=== PATIENT | male | born 1940 | race Caucasian/White ===

== ENCOUNTER 2024-08-29 08:19 | Observation (INO) ==
[~2024-08-29 08:19] MED LIST: Morphine 4 MG/ML VIAL (1 ml) IV PRN; Naloxone 0.4 mg VIAL 0.4 mg/ml 1 ml VIAL IV PRN; fentaNYL 100 mcg/2 ml 50 MCG/ML VIAL IV PRN
[2024-08-29] MEDS ORDERED: Tranexamic Acid 1 GM/100ML BAG 2,000 MG/200 ML BAG IV ONE (08:40)
[2024-08-29] MEDS ORDERED: ceFAZolin 2 GM PREMIX 2 GM/50 ML BAG ONE (08:40)
[2024-08-29] MEDS ORDERED: Dexamethasone IV 4 MG/ML VIAL 1 ml VIAL ONE (08:47)
[2024-08-29] MEDS ORDERED: Famotidine IV 10 MG/ML 2 ml VIAL (20 mg) ONE (08:47)
[2024-08-29] MEDS: Dexamethasone IV 4 MG/ML VIAL 1 ml VIAL IV SLOW PU ONE (09:02)
[2024-08-29] MEDS: Famotidine IV 10 MG/ML 2 ml VIAL (20 mg) IV ONE (09:02)
[2024-08-29 09:06] LABS: Rapid COVID-19 Molecular Undetected (Undetected)
[2024-08-29] MEDS ORDERED: Propofol 10 MG/ML 20 ML BTL ONE (09:28)
[2024-08-29] MEDS ORDERED: Lidocaine 2% PF 5 ML VIAL ONE (09:28)
[2024-08-29] MEDS ORDERED: Rocuronium 50 mg VIAL 10 mg/ml 5 ml VIAL (50 mg) ONE (09:28)
[2024-08-29] MEDS ORDERED: Lidocaine 1% w EPI 1:200,000 SDV 30 ML VIAL ONE (09:58)
[2024-08-29] MEDS ORDERED: Midazolam 2 mg/2 ml VIAL 1 mg/ml 2 ml VIAL (2 mg) ONE (10:12)
[2024-08-29] MEDS ORDERED: fentaNYL 100 mcg/2 ml 50 MCG/ML VIAL ONE (10:12)
[2024-08-29] MEDS ORDERED: ROPIVACAINE 5 MG/ML 30 ML BTL (0.5%) ONE (10:36)
[2024-08-29] MEDS ORDERED: Ondansetron 4 mg VIAL 2 MG/ML 2 ml VIAL ONE (11:32)
[2024-08-29] MEDS ORDERED: Glycopyrrolate IV 0.2 MG/ML 1 ML VIAL ONE ×2 (11:54→13:15)
[2024-08-29] MEDS ORDERED: Sodium Chloride 0.9% 10 ML ONE (11:55)
[2024-08-29] MEDS ORDERED: Phenylephrine IV 10 MG/ML 1 ml VIAL ONE (13:31)
[2024-08-29] MEDS ORDERED: Magnesium Hydroxide LIQ 30 ML UDC PO PRN (15:09)
[2024-08-29] MEDS ORDERED: Lactulose 30 ml UDC PO PRN (15:09)
[2024-08-29] MEDS ORDERED: Morphine 2 MG/ML SYRINGE IV PRN (15:09)
[2024-08-29] MEDS ORDERED: Ondansetron ODT 4 mg TAB 4 MG TAB PO PRN (15:09)
[2024-08-29] MEDS ORDERED: Ondansetron 4 mg VIAL 2 MG/ML 2 ml VIAL IV PRN (15:09)
[2024-08-29] MEDS: Buffered Lidocaine 1% SYRIN 1 ml INTRADERM ONE (15:21)
[2024-08-29] MEDS: Lactated Ringers 1000 ml BAG 1,000 ML IV SCH ×2 (15:21→17:26)
[2024-08-29] MEDS ORDERED: Albuterol HFA INHALER 8 gm MDI INH PRN (18:00)
[2024-08-29] MEDS: Mometasone/Formoter 200/5 MDI INH SCH (19:37)
[2024-08-29] MEDS: Magnesium Hydroxide LIQ 30 ML UDC PO SCH (21:56)
[2024-08-29] MEDS: ceFAZolin 1 GM ADVAN 1 GM in NS 0.9% 50 ML 50 ML IVPB SCH (21:56)
[2024-08-30 06:53] LABS: Hematocrit 27.1 % (38-53); Hemoglobin 9.5 g/dL (13.2-16.3); Mean Platelet Volume 7.4 fL (7.5-11.2); Platelet Count 216 10^3/uL (150-450)
[2024-08-30 07:03] LABS: Calcium 8.5 mg/dL (8.6-10.3); Creatinine, Serum 0.96 mg/dL (0.67-1.17); Potassium 3.8 mmol/L (3.5-5.0); eGFR CKD-EPI 79.4 (>60)
[2024-08-30] MEDS: Vitamin THERAPEUTIC TAB PO SCH (08:29)
[2024-08-30] MEDS ORDERED: Mometasone 220 MCG MDI INH SCH (09:00)
[2024-08-30 13:32] VITALS: BP 136/74
== END 2024-08-30 13:05 | disposition home or self-care (01) ==
LOC: OR 08:19 → SSU 08:19
PROVIDERS: ADMIT Orthopaedic Surgery Sports Medicine; ATTEND Orthopaedic Surgery Sports Medicine